=== PATIENT | female | born 1975 | race Caucasian/White ===

== ENCOUNTER → 2017-01-16 | Outpatient (CLI) | payer OTHER ==
[~2017-01-16] MED LIST: CELEXA10 M1 PO; GLIPIZIDE XL2.5 MG PO; PRENATAL PLUS1 TA1 PO; SYNTHROID 0.0.075 MG PO
--- NOTE | 2017-01-20 14:07 | RADIOLOGY REPORT PS360 ---
DIG MAMM-SCREEN YA W/CAD CAD Screening COMPARISON: Digital mammograms 11/02/2015 and additional views right breast 05/26/2016 INDICATION: There is a history of breast cancer patient's mother diagnosed after menopause TECHNIQUE: Standard CC and MLO images were obtained. R2 CAD reviewed. FINDINGS: The breasts are composed almost entirely of fat with minimal scattered fibroglandular densities in each breast. Is a stable tiny nodular density axillary tail right breast likely a small node. There is no suspicious lesion and no suspicious microcalcifications. IMPRESSION: Fatty type breast parenchyma no suspicious lesion seen recommend yearly follow-up BI-RADS CATEGORY: 2_Benign RECOMMENDED FOLLOWUP: 12M 12 MONTH FOLLOW-UP (A letter has been sent to the patient regarding results of the study.)
== END ==
LOC: RAD 15:57
DX: Z12.31 Encounter for screening mammogram for malignant neoplasm of breast (principal)
CPT/HCPCS: G0202